=== PATIENT | female | born 1995 | race Caucasian/White ===

== ENCOUNTER 2021-01-18 18:16 | Emergency (ER) | payer OTHER, SELFPAY ==
[~2021-01-18] VITALS: Ht 165.1 cm; Wt 72.6 kg
--- NOTE | 2021-01-18 18:40 | NUR ---
Pt triaged and placed in waiting room.
[2021-01-18 18:41] VITALS: BP_SYST 129
--- NOTE | 2021-01-18 19:20 | NUR ---
COVID SPECIMEN OBTAINED
--- NOTE | 2021-01-18 20:06 | NUR ---
DR MCDONALDOO OUT TO TRIAGE TENT FOR EVALUATION
--- NOTE | 2021-01-18 20:35 | NUR ---
Patient given written and verbal discharge instructions and verbalizes understanding. ER MD discussed with patient the results and treatment provided. Patient in stable condition. ID arm band removed. Rx of BROMFED-DM given. Patient educated on pain management and to follow up with PMD. Pain Scale 0/10. Opportunity for questions provided and answered. Medication side effect fact sheet provided.
== END 2021-01-18 20:35 | disposition home or self-care (01) ==
LOC: SED 18:16
DX: J06.9 Acute upper respiratory infection, unspecified (principal); Z20.822 Contact with and (suspected) exposure to COVID-19
CPT/HCPCS: 36415; 99283